=== PATIENT | female | born 1935 | race Caucasian/White ===

== ENCOUNTER 2018-10-16 05:41 | Emergency (ER) | payer MEDICARE, BC ==
[~2018-10-16] VITALS: Ht 160 cm; Wt 63.6 kg
[2018-10-16] MEDS ORDERED: COZAAR100 MG PO (06:07)
[2018-10-16] MEDS ORDERED: TENORMIN25 MG PO (06:07)
[2018-10-16 06:35] LABS: BASO # 0.1 (0.02-0.10); EOS # 0.5 (0.04-0.40); EOS % 6.6 % (1.0-5.0); HEMATOCRIT 44.6 % (37.0-47.0); HEMOGLOBIN 14.2 g/dL (12.5-16.0); LYMPH# 1.9 (1.50-4.00); MEAN CELL VOLUME 92 fl (78-100); MEAN CORPUSCULAR HEMOGLOBIN 29 pg (27-31); MEAN CORPUSCULAR HGB CONC 32 g/dL (33-37); MEAN PLATELET VOLUME 11.2 fl (7.4-10.4); MONO # 0.8 (0.20-0.80); NEU # 4.7 (1.40-6.50); PLATELET COUNT 222 K/mm3 (130-400); RED BLOOD COUNT 4.84 M/mm3 (4.10-5.30); RED CELL DISTRIBUTION WIDTH 13.2 % (11.5-14.5)
[2018-10-16 06:46] LABS: ALBUMIN 4.2 g/dL (3.5-5.0); CALCIUM 9.6 mg/dL (8.4-10.2); POTASSIUM 4.5 mmol/L (3.6-5.0); TOTAL BILIRUBIN 0.7 mg/dL (0.2-1.3); TOTAL PROTEIN 7.1 g/dL (6.3-8.2)
[2018-10-16 06:53] LABS: PH-URINE 7.5 (5.0 - 8.0); URINE APPEARANCE CLEAR; URINE COLOR YELLOW
[2018-10-16 06:54] LABS: URINE BILIRUBIN NEGATIVE (NEGATIVE); URINE BLOOD TRACE (NEGATIVE); URINE GLUCOSE NEGATIVE (NEGATIVE); URINE KETONE NEGATIVE (NEGATIVE); URINE LEUKOCYTE ESTERASE 1+ (NEGATIVE); URINE NITRATE NEGATIVE (NEGATIVE); URINE PROTEIN(semi-quant) TRACE mg/dL (NEGATIVE); URINE UROBILINOGEN NORMAL (NORMAL); URINE WBC 0-1 /hpf (0-3)
[2018-10-16] MEDS ORDERED: BACTRIM DS TAB1 EACH PO (09:08)
[2018-10-16 09:41] VITALS: BP 156/88
== END 2018-10-16 09:41 | disposition home or self-care (01) ==
LOC: ED 05:41
PROVIDERS: Nurse Practitioner
DX: K57.12 Diverticulitis of small intestine without perforation or abscess without bleeding (principal); I10 Essential (primary) hypertension; G00.9 Bacterial meningitis, unspecified; Z90.12 Acquired absence of left breast and nipple
CPT/HCPCS: J2405; J3010; J7030; Q9967